=== PATIENT | female | born 1935 | race Caucasian/White ===

== ENCOUNTER 2020-12-05 07:13 | Emergency (ER) | payer MEDICARE, BC ==
[~2020-12-05] VITALS: Ht 170.2 cm; Wt 51.3 kg
[2020-12-05 07:18] VITALS: BP 168/74
[2020-12-05 07:44] LABS: COLOR,URINE RED (Yellow)
[2020-12-05 07:48] LABS: CLARITY,URINE Bloody (Clear); UA COLLECTION TYPE CLN CATCH MIDSTREAM
[2020-12-05 07:50] LABS: BACTERIA,URINE 1+ /HPF (Neg); MUCUS STRANDS NONE SEEN /LPF (Neg); RBC,URINE TNTC /HPF (0-2); SQUAMOUS EPITHELIAL CELL,UR NONE SEEN /LPF (FEW)
[2020-12-05] MEDS ORDERED: NITR100C PO (08:45)
[2020-12-05] MEDS ORDERED: nitrofuran/nitrofuran macrocrysal 100 MG capsule PO ONE (08:45)
== END 2020-12-05 08:52 | disposition home or self-care (01) ==
LOC: ER 07:13
DX: N39.0 Urinary tract infection, site not specified (principal); R10.2 Pelvic and perineal pain; Z79.899 Other long term (current) drug therapy
CPT/HCPCS: 81001; 87077; 87088; 87186; 99283

== ENCOUNTER 2021-01-09 09:34 | Emergency (ER) | payer MEDICARE, BC ==
[~2021-01-09] VITALS: Ht 170.2 cm; Wt 54.5 kg
[~2021-01-09 09:34] MED LIST: NITR100C PO
--- NOTE | 2021-01-09 10:16 | NUR ---
Back from CT at this time via guerny. No signs of distress noted.
--- NOTE | 2021-01-09 11:05 | NUR ---
Patient up to bathroom at this time independently ambualting, gait steady and balanced.
[2021-01-09 11:38] VITALS: BP 136/67
== END 2021-01-09 11:41 | disposition home or self-care (01) ==
LOC: ER 09:34
DX: M54.5 Low back pain (principal); M25.511 Pain in right shoulder; M54.2 Cervicalgia; Z79.899 Other long term (current) drug therapy; V99.XXXA Unspecified transport accident, initial encounter; Y93.89 Activity, other specified; Y92.89 Other specified places as the place of occurrence of the external cause; Y99.8 Other external cause status
CPT/HCPCS: 70450; 72125; 72128; 72131; 73030; 99285

== ENCOUNTER 2022-04-04 07:52 | Emergency (ER) | payer MEDICARE, BC ==
[~2022-04-04] VITALS: Ht 162.6 cm; Wt 72.7 kg
--- NOTE | 2022-04-04 08:20 | NUR ---
Spoke with Dr. Jewell who requested that CT- cerv[facility] spine [facility]. Verbal order placed per Dr. Jewell's verbal order.
[2022-04-04 08:58] LABS: ALBUMIN 3.7 G/DL (3.4-5.0); ANION GAP 5 (8-16); BLOOD UREA NITROGEN 14 MG/DL (7-18); BUN/CREATININE RATIO 21.9 (6.6-38.0); CALCIUM 9.1 MG/DL (8.5-10.1); CHLORIDE 106 MMOL/L (99-107); CREATININE 0.64 MG/DL (0.40-0.90); GLUCOSE 116 MG/DL (70-104); POTASSIUM 3.7 MMOL/L (3.5-5.1); SODIUM 141 MMOL/L (135-145); TOTAL CARBON DIOXIDE 29.9 MMOL/L (24-32); eGFR 88 ML/MIN
[2022-04-04 09:00] LABS: APTT 25 SECONDS (22-32)
[2022-04-04 09:08] LABS: BASOPHILS % (AUTO) 0.6 % (0-1); EOSINOPHILS % (AUTO) 0.9 % (0-6); HEMATOCRIT 41.1 % (35.0-45.0); HEMOGLOBIN 13.7 g/dl (12.0-16.0); LYMPHOCYTES # (AUTO) 0.5 X10'3 (1.1-4.8); LYMPHOCYTES % (AUTO) 11.3 % (21-51); MEAN CORPUSCULAR HEMOGLOBIN 30.2 PG (27.0-31.0); MEAN CORPUSCULAR HGB CONC 33.3 g/dL (33.0-36.5); MEAN CORPUSCULAR VOLUME 90.5 FL (78-98); MEAN PLATELET VOLUME 8.5 FL (7.4-10.4); MONOCYTES # (AUTO) 0.3 X10'3 (0-0.9); MONOCYTES % (AUTO) 8.6 % (2-12); NEUTROPHILS # (AUTO) 3.1 X10'3 (1.8-7.7); NEUTROPHILS % (AUTO) 78.6 % (42-75); PLATELET COUNT 212 X10'3 (140-440); RED BLOOD COUNT 4.54 X10'6 (4.20-5.60); RED CELL DISTRIBUTION WIDTH 14.3 % (11.5-14.5)
[2022-04-04] MEDS ORDERED: acetaminophen 325mg tablet PO ONE (09:25)
--- NOTE | 2022-04-04 12:13 | NUR ---
Pt resting , no acute distress nioted, disposition pending.
--- NOTE | 2022-04-04 14:07 | NUR ---
Pt d/c home with son in good condition,instructions given, verbalized understanding.
[2022-04-04 14:13] VITALS: BP 112/67
== END 2022-04-04 14:15 | disposition home or self-care (01) ==
LOC: ER 07:52
DX: S00.03XA Contusion of scalp, initial encounter (principal); M25.511 Pain in right shoulder; W19.XXXA Unspecified fall, initial encounter; Y93.89 Activity, other specified; Y92.89 Other specified places as the place of occurrence of the external cause; Y99.8 Other external cause status
CPT/HCPCS: 29105; 36415; 70450; 72127; 73030; 73200; 80048; 85025; 85610; 85730; 99285; A4565

== ENCOUNTER 2022-08-10 09:01 | Inpatient (IN) | payer BC, MEDICARE ==
[2022-08-04 16:14] LABS: BASOPHILS % (AUTO) 0.9 % (0-1); EOSINOPHILS # (AUTO) 0.1 X10'3 (0-0.9); EOSINOPHILS % (AUTO) 1.6 % (0-6); LYMPHOCYTES # (AUTO) 0.9 X10'3 (1.1-4.8); LYMPHOCYTES % (AUTO) 19.8 % (21-51); MEAN CORPUSCULAR HEMOGLOBIN 30.2 PG (27.0-31.0); MEAN CORPUSCULAR HGB CONC 33.1 g/dL (33.0-36.5); MEAN CORPUSCULAR VOLUME 91.4 FL (78-98); MEAN PLATELET VOLUME 8.2 FL (7.4-10.4); MONOCYTES # (AUTO) 0.4 X10'3 (0-0.9); MONOCYTES % (AUTO) 9.1 % (2-12); NEUTROPHILS # (AUTO) 3.3 X10'3 (1.8-7.7); NEUTROPHILS % (AUTO) 68.6 % (42-75); PRE OP HEMATOCRIT 44.3 % (35.0-45.0); PRE OP HEMOGLOBIN 14.6 g/dL (12.0-16.0); PRE OP PLATELET COUNT 269 X10'3 (140-440); RED BLOOD COUNT 4.84 X10'6 (4.20-5.60); RED CELL DISTRIBUTION WIDTH 14.4 % (11.5-14.5)
[2022-08-04 16:24] LABS: ALBUMIN/GLOBULIN RATIO 1.1 (1.1-1.5); ALKALINE PHOSPHATASE 97 IU/L (46-116); BLOOD UREA NITROGEN 15 MG/DL (7-18); BUN/CREATININE RATIO 24.2 (6.6-38.0); CALCIUM 9.9 MG/DL (8.5-10.1); CHLORIDE 104 MMOL/L (99-107); CREATININE 0.62 MG/DL (0.40-0.90); PRE OP ALT 26 U/L (30-65); PRE OP ANION GAP 11 (8-16); PRE OP AST 32 U/L (10-37); PRE OP BILIRUB, TOTAL 0.6 MG/DL (0.0-1.0); PRE OP GLUCOSE 94 MG/DL (70-104); PRE OP SODIUM 143 MMOL/L (135-145); TOTAL CARBON DIOXIDE 28.5 MMOL/L (24-32); TOTAL PROTEIN 7.7 G/DL (6.4-8.2); eGFR > 90 ML/MIN
[~2022-08-10] VITALS: Ht 167.6 cm; Wt 50.1 kg
[2022-08-10] VITALS (15 sets, daily range): BP systolic 122–183; BP diastolic 50–89
[~2022-08-10 09:01] MED LIST changes: +APIX2.5T PO; +CALC-723 PO; +CHOL20004 PO; +DENO60DI SUBCUT; +DOCUMENT DATE & TIME OF BETA-BLOCKER PO ONE; +HYDROcodone/acetaminophen 10/325mg tab PO PRN; +HYDROmorphone 1 mg/ml syringe IV PRN; +HYDROmorphone inj. 0.5 MG/0.5 ML DISP.SYRIN IV PRN; +MULT-1074 PO; -NITR100C PO; +ROPIVAcaine 0.5% (5mg/ml) 30ml vial ONE; +SIMV40TA PO; +SOTA80TA73 PO; +acetaminophen 325mg tablet PO ONE; +bisacodyl 10mg suppository rectal RC PRN; +ceFAZolin inj. 2,000 MG in dextrose 5%-water 100 ML IV ONE; +celeCOXIB 100mg capsule PO ONE; +cloNIDine hcl/PF 100mcg/ml inj ONE; +diphenhydrAMINE 25mg capsule PO PRN; +epiNEPHrine 1 mg/ml inj ONE; +famotidine 20mg tablet PO ONE; +gabapentin 300mg capsule PO ONE; +ketorolac trometh. 30mg/ml inj. ONE; +magnesium hydroxide 30ml (MOM) UD suspension PO PRN; +metoclopramide 5 mg/ml inj IV ONE; +naloxone 0.4 mg/ml inj IV PRN; +ondansetron/PF 4mg/2ml inj IV PRN; +oxyCODONE SR 10mg (sust. release) tab -2 tabs (20mg) PO ONE; +potassium cl 20mEq in 1/2 NS 1,000 ML IV SCH; +tranexamic acid inj. 1,000 MG in normal saline IV soln 100ML IV ONE; +vancomycin 1,000mg inj ONE; +vancomycin/NS 1 GM in NS 250 ML IV ONE
[2022-08-10] MEDS: ringers solution, lacted 1,000 ML IV SCH (10:52)
[2022-08-10] MEDS ORDERED: ondansetron 4mg rapidly disintigrating tab PO PRN (13:05)
[2022-08-10] MEDS ORDERED: fentaNYL/PF 50MCG/1 ML 2ML syringe ONE (13:30)
[2022-08-10] MEDS ORDERED: midazolam 1 mg/ML 2ml injection ONE (13:46)
[2022-08-10] MEDS ORDERED: ePHEDrine 50MG/ML INJ. ONE (13:56)
--- NOTE | 2022-08-10 15:07 | NUR ---
RECEIVED PT FROM OPERATING ROOM REPORT BY ANESTHESIOLOGIST. PT IS SLEEPY BUT EASILY AROUSABLE. VITAL SIGNS STABLE. ATTACHED TO CARDIAC, BP AND PULSE OX MONITOR. IV SITE CHECKED AND IS PATENT. NO SIGNS OF INFILTRATION. LEFT RAJANI DRESSING IS DRY AND INTACT. PT IS ABLE TO FEEL ME TOUCH HER AT THE UPPER THIGH AREA, UNABLE TO WIGGLE HER TOES AT THIS TIME, NO NORMAN NOTED
[2022-08-10] MEDS ORDERED: hydrALAZINE 20mg/ml inj. IV PRN (15:10)
[2022-08-10] MEDS ORDERED: meperidine/PF 25mg/ml syringe IV PRN ×3 (15:10)
[2022-08-10] MEDS ORDERED: labetalol 20mg/4ml (5mg/ml) syringe IV PRN (15:10)
[2022-08-10] MEDS ORDERED: ringers solution, lacted 1,000 ML IV SCH (15:10)
[2022-08-10] MEDS ORDERED: morphine 4 MG/ML inj SYRINge IV PRN (15:10)
[2022-08-10] MEDS ORDERED: acetaminophen 1,000mg/100ml IV 100 ML IV PRN (15:10)
[2022-08-10] MEDS ORDERED: ondansetron/PF 4mg/2ml inj IV PRN (15:10)
[2022-08-10] MEDS ORDERED: morphine 2 MG/ML inj. syringe IV PRN (15:10)
--- NOTE | 2022-08-10 15:24 | NUR ---
JAYDON BACK FROM LUNCH, REPORT GIVEN, PATIENT REMAINS STABLE
--- NOTE | 2022-08-10 15:40 | NUR ---
BG 89. PT AAOX4, DENIES PAIN. BILATERAL FEET/LEGS WARM TO TOUCH. PT ABLE TO MOVE LEFT FOOT. DRESSING TO LEFT HIP CLEAN DRY AND INTACT. RAJANI DRESSING FLASHING GREEN. Addendum: 08/10/22 at 1541 by Hong Calzada RN Amended: Links added.
--- NOTE | 2022-08-10 15:50 | NUR ---
REPORT GIVEN TO BENNIE SUAREZ, TO BE DELIVERED TO ROOM [facility]. Addendum: 08/10/22 at 1551 by Hong Calzada RN Amended: Links added.
--- NOTE | 2022-08-10 15:57 | NUR ---
Report called to receiving nurse BENNIE SUAREZ. Transferred via HOSPITAL BED. Belongings . LEFT AT PT BEDSIDE 356A. PT RESTING IN BED COMFORTABLY, CALL LIGHT IN REACH, VERBALIZED UNDERSTANDING OF ITS USE. BED IN LOW POSITION. DELIVERED TO ROOM WITHOUT INCIDENT. Special Issues communicated to receiving nurse. Addendum: 08/10/22 at 1622 by Hong Calzada RN Amended: Links added.
[2022-08-10] MEDS: HYDROcodone/acetaminophen 10/325mg tab PO PRN ×2 (16:31→23:31)
--- NOTE | 2022-08-10 16:54 | NUR ---
patient orientated to room. c/o pain 03/14 medicated with [place] see EMAR. Dressing to left hip CDI. palpable pulses bilat feet. commenced on post op vitals. will continue to monitor
[2022-08-10] MEDS ORDERED: tranexamic acid inj. 530 MG in normal saline 100ml IV soln 94.7 ML IV ONE (18:15)
--- NOTE | 2022-08-10 18:27 | NUR ---
Problems reprioritized. Patient report given, questions answered & plan of care reviewed with Shira SUAREZ.
--- NOTE | 2022-08-10 18:30 | NUR ---
Patient in room [facility]. I have received report from BENNIE SUAREZ and had the opportunity to ask questions and assume patient care.
[2022-08-10] MEDS ORDERED: vancomycin/NS 1 GM ADD-VANTAGE 250 ML IV SCH (20:00)
[2022-08-10] MEDS: ceFAZolin/D5W- 1GM premix 50 ML IV SCH (21:00)
[2022-08-10] MEDS: sotalol 80mg tablet PO SCH (21:12)
[2022-08-10] MEDS: ascorbic acid 500mg tablet PO SCH (21:12)
[2022-08-10] MEDS: apixaban 2.5mg tablet PO SCH (21:12)
[2022-08-10] MEDS: gabapentin 300mg capsule PO SCH (21:12)
[2022-08-10] MEDS: proCHLORperazine 10 MG/2 ml inj IV PRN (23:30)
[2022-08-11] MEDS: ceFAZolin/D5W- 1GM premix 50 ML IV SCH (00:30)
[2022-08-11 02:00] VITALS: BP 124/54
[2022-08-11] MEDS: HYDROcodone/acetaminophen 10/325mg tab PO PRN ×2 (05:45→13:57)
[2022-08-11 06:14] VITALS: BP 124/62
--- NOTE | 2022-08-11 06:25 | NUR ---
Problems reprioritized. Patient report given, questions answered & plan of care reviewed with OMER SUAREZ.
--- NOTE | 2022-08-11 06:25 | NUR ---
Patient in room [facility]. I have received report from Liliana Ford rn and had the opportunity to ask questions and assume patient care.
[2022-08-11 07:21] LABS: BASOPHILS % (AUTO) 0.1 % (0-1); EOSINOPHILS % (AUTO) 0 % (0-6); HEMATOCRIT 35.3 % (35.0-45.0); HEMOGLOBIN 11.7 g/dl (12.0-16.0); LYMPHOCYTES # (AUTO) 0.6 X10'3 (1.1-4.8); LYMPHOCYTES % (AUTO) 6.6 % (21-51); MEAN CORPUSCULAR HEMOGLOBIN 30.2 PG (27.0-31.0); MEAN CORPUSCULAR VOLUME 91.7 FL (78-98); MEAN PLATELET VOLUME 8.2 FL (7.4-10.4); MONOCYTES # (AUTO) 0.7 X10'3 (0-0.9); MONOCYTES % (AUTO) 7.7 % (2-12); NEUTROPHILS # (AUTO) 7.7 X10'3 (1.8-7.7); NEUTROPHILS % (AUTO) 85.6 % (42-75); PLATELET COUNT 148 X10'3 (140-440); RED BLOOD COUNT 3.85 X10'6 (4.20-5.60); RED CELL DISTRIBUTION WIDTH 14.4 % (11.5-14.5)
[2022-08-11] MEDS: sotalol 80mg tablet PO SCH ×2 (07:29→21:37)
[2022-08-11] MEDS: ascorbic acid 500mg tablet PO SCH ×2 (07:30→21:37)
[2022-08-11] MEDS: apixaban 2.5mg tablet PO SCH ×2 (07:30→21:37)
[2022-08-11] MEDS: gabapentin 300mg capsule PO SCH ×3 (07:30→21:36)
[2022-08-11] MEDS: multivitamins, therapeutics tablet PO SCH (07:31)
[2022-08-11 07:59] LABS: ANION GAP 11 (8-16); CHLORIDE 102 MMOL/L (99-107); POTASSIUM 3.9 MMOL/L (3.5-5.1); SODIUM 137 MMOL/L (135-145); TOTAL CARBON DIOXIDE 23.7 MMOL/L (24-32)
--- NOTE | 2022-08-11 10:49 | NUR ---
Joint surgery consult: Pt s/p L hip surgery this admit per EMR. Pt seen by RD for written/verbal high protein diet ed w/ RD contact information provided. Noted pt BMI 17.8 via 50.1kg standing scale w/ last scaled wt hx 51.3kg chair scale 12/24' per EMR. Though wt hx consistent pt has severe visible muscle/fat wasting evident to temporal, buccal, and clavicular regions during RD visit. Per pt, has noticed clothes fitting looser and wt loss past 3 months w/ prior UBW ~120 pounds. Unsure of 120 pounds wt accuracy given prior scaled wt hx but given visible wasting pt meets minimum severe malnutrition criteria; MD notified. Pt reports dislikes red meats but likes fish w/ no further food preferences dietary notified. Per pt, son buys her "protein drinks that come in 8-pack" for her to drink at times. Noted nausea this AM 0% initial meals post-op but nausea now resolved following meds per pt. RD reviewed importance of wt maintenance/gain post-op and verbally educated pt on nutrition strategies to increase kcal intake. Ensure ONS coupons provided to pt by RD. RD encouraged pt to contact dietitian's office if further nutrition questions/concerns. No discharge orders at this time per RN but joint surgery patients typically discharged 1-2 days post-op so Ensure ONS recommendation which needs to be verified by physician prior to sending logistically not feasible. Will monitor for pt PO acceptance now that nausea resolved and further nutrition intervention needs this admit. Rec: 1. continue regular diet; encourage PO; honor food preferences 2. monitor for PO trends; consider ONS if prolonged LOS 3. MVI for wound healing per MD 4. routine bowel care. 5. weekly wts Addendum: 08/11/22 at [address] Amended: Links added.
[2022-08-11 11:35] VITALS: BP 128/47
[2022-08-11] MEDS: proCHLORperazine 10 MG/2 ml inj IV PRN (13:59)
[2022-08-11] MEDS: ringers solution, lacted 1,000 ML IV SCH ×2 (15:25→17:50)
[2022-08-11 17:51] VITALS: BP 92/50
[2022-08-11 18:00] VITALS: BP 99/44
[2022-08-11] MEDS ORDERED: proCHLORperazine 10 MG/2 ml inj IV PRN (18:35)
--- NOTE | 2022-08-11 18:37 | NUR ---
Problems reprioritized. Patient report given, questions answered & plan of care reviewed with judd whaley rn.
--- NOTE | 2022-08-11 18:40 | NUR ---
Patient in room [facility]. I have received report from OMER SUAREZ and had the opportunity to ask questions and assume patient care.
[2022-08-11] MEDS: celeCOXIB 100mg capsule PO SCH (21:37)
[2022-08-11] MEDS: traMADol 50MG tablet PO PRN (21:38)
[2022-08-11] MEDS: atorvastatin 20mg tablet PO SCH (21:39)
[2022-08-11] MEDS: sennosides 8.6mg tablet PO SCH (21:39)
[2022-08-11 22:00] VITALS: BP 96/46
[2022-08-12] MEDS: ringers solution, lacted 1,000 ML IV SCH ×4 (01:59→22:12)
[2022-08-12 02:00] VITALS: BP 124/47
[2022-08-12] MEDS: traMADol 50MG tablet PO PRN ×2 (05:39→22:48)
[2022-08-12 06:00] VITALS: BP 102/40
--- NOTE | 2022-08-12 06:28 | NUR ---
Problems reprioritized. Patient report given, questions answered & plan of care reviewed with KALPANA SUAREZ.
--- NOTE | 2022-08-12 06:31 | NUR ---
Patient in room [facility]. I have received report from Shira SUAREZ and had the opportunity to ask questions and assume patient care.
[2022-08-12 06:37] VITALS: BP 102/38
[2022-08-12] MEDS: sotalol 80mg tablet PO SCH ×2 (08:00→20:50)
[2022-08-12] MEDS: multivitamins, therapeutics tablet PO SCH (08:04)
[2022-08-12] MEDS: gabapentin 300mg capsule PO SCH ×3 (08:04→20:50)
[2022-08-12] MEDS: celeCOXIB 100mg capsule PO SCH ×2 (08:04→20:50)
[2022-08-12] MEDS: ascorbic acid 500mg tablet PO SCH ×2 (08:04→20:50)
[2022-08-12] MEDS: apixaban 2.5mg tablet PO SCH ×2 (08:04→20:50)
[2022-08-12 08:21] LABS: BASOPHILS % (AUTO) 0.2 % (0-1); EOSINOPHILS % (AUTO) 0.6 % (0-6); HEMATOCRIT 32.2 % (35.0-45.0); HEMOGLOBIN 10.9 g/dl (12.0-16.0); LYMPHOCYTES # (AUTO) 0.5 X10'3 (1.1-4.8); MEAN CORPUSCULAR HEMOGLOBIN 30.8 PG (27.0-31.0); MEAN CORPUSCULAR HGB CONC 33.9 g/dL (33.0-36.5); MEAN CORPUSCULAR VOLUME 90.7 FL (78-98); MEAN PLATELET VOLUME 7.8 FL (7.4-10.4); NEUTROPHILS # (AUTO) 6.2 X10'3 (1.8-7.7); NEUTROPHILS % (AUTO) 80.2 % (42-75); PLATELET COUNT 151 X10'3 (140-440); RED BLOOD COUNT 3.55 X10'6 (4.20-5.60); RED CELL DISTRIBUTION WIDTH 14.1 % (11.5-14.5); WHITE BLOOD COUNT 7.8 X10'3 (4.5-11.0)
--- NOTE | 2022-08-12 08:30 | NUR ---
MD Jordon Morillo informed of Pt blood pressure of 98/46 no new orders.
[2022-08-12 11:15] VITALS: BP 93/41
--- NOTE | 2022-08-12 14:58 | NUR ---
TECHNICAL CUSTOMER SUPPORT SPECIALIST documentation: I have reviewed and agree with all interventions, assessments performed and documented by Susan Luque LVN.
[2022-08-12 15:25] VITALS: BP 124/56
--- NOTE | 2022-08-12 18:14 | NUR ---
Problems reprioritized. Patient report given, questions answered & plan of care reviewed with Shira York .
--- NOTE | 2022-08-12 18:30 | NUR ---
Patient in room [facility]. I have received report from KALPANA PRIDE and had the opportunity to ask questions and assume patient care.
[2022-08-12] MEDS: atorvastatin 20mg tablet PO SCH (20:50)
[2022-08-12] MEDS: sennosides 8.6mg tablet PO SCH (20:51)
[2022-08-12 22:00] VITALS: BP 127/46
[2022-08-13] MEDS: traMADol 50MG tablet PO PRN (05:43)
[2022-08-13] MEDS: ringers solution, lacted 1,000 ML IV SCH ×3 (05:45→22:24)
--- NOTE | 2022-08-13 06:30 | NUR ---
Problems reprioritized. Patient report given, questions answered & plan of care reviewed with KALPANA PRIDE.
[2022-08-13 07:20] LABS: BASOPHILS % (AUTO) 0.3 % (0-1); EOSINOPHILS # (AUTO) 0.1 X10'3 (0-0.9); EOSINOPHILS % (AUTO) 2.3 % (0-6); HEMOGLOBIN 10.2 g/dl (12.0-16.0); LYMPHOCYTES # (AUTO) 0.5 X10'3 (1.1-4.8); LYMPHOCYTES % (AUTO) 8.1 % (21-51); MEAN CORPUSCULAR VOLUME 90.8 FL (78-98); MEAN PLATELET VOLUME 8.5 FL (7.4-10.4); MONOCYTES # (AUTO) 0.8 X10'3 (0-0.9); NEUTROPHILS # (AUTO) 4.4 X10'3 (1.8-7.7); NEUTROPHILS % (AUTO) 75.3 % (42-75); PLATELET COUNT 147 X10'3 (140-440); RED BLOOD COUNT 3.41 X10'6 (4.20-5.60); RED CELL DISTRIBUTION WIDTH 14.2 % (11.5-14.5); WHITE BLOOD COUNT 5.9 X10'3 (4.5-11.0)
[2022-08-13] MEDS: gabapentin 300mg capsule PO SCH ×3 (08:12→19:44)
[2022-08-13] MEDS: multivitamins, therapeutics tablet PO SCH (08:12)
[2022-08-13] MEDS: celeCOXIB 100mg capsule PO SCH ×2 (08:12→19:43)
[2022-08-13] MEDS: apixaban 2.5mg tablet PO SCH ×2 (08:13→19:43)
[2022-08-13] MEDS: sotalol 80mg tablet PO SCH ×2 (08:13→19:42)
[2022-08-13] MEDS: ascorbic acid 500mg tablet PO SCH ×2 (08:13→19:43)
[2022-08-13 08:14] VITALS: BP 137/65
--- NOTE | 2022-08-13 17:45 | NUR ---
GLASS OR MIRROR INSPECTOR documentation: I have reviewed and agree with all interventions, assessments performed and documented by Jacqui Luque LVN .
[2022-08-13 18:00] VITALS: BP 104/38
--- NOTE | 2022-08-13 18:33 | NUR ---
Patient in room [facility]. I have received report from Jacqui and had the opportunity to ask questions and assume patient care.
[2022-08-13] MEDS: atorvastatin 20mg tablet PO SCH (19:43)
[2022-08-13] MEDS: sennosides 8.6mg tablet PO SCH (19:44)
--- NOTE | 2022-08-13 20:30 | NUR ---
Pt c/o that she had intermittent double vision to the right eye during the day. I did visual testing with her and she did not have any double vision for me and she had full vision to all quadrants. I asked that she tell us if she develops anymore double vision immediately. Addendum: 08/14/22 at 0655 by Hali Murcia RN Amended: Links added.
[2022-08-13 22:00] VITALS: BP 92/44
[2022-08-14 02:00] VITALS: BP 122/57
[2022-08-14 06:00] VITALS: BP 132/56
--- NOTE | 2022-08-14 06:01 | NUR ---
Problems reprioritized. Patient report given, questions answered & plan of care reviewed with
--- NOTE | 2022-08-14 06:27 | NUR ---
Patient in room [facility]. I have received report from Gris PRIDE and had the opportunity to ask questions and assume patient care.
--- NOTE | 2022-08-14 06:55 | NUR ---
I agree with Gris PRIDE physical assessment except where I documented my findings.
[2022-08-14] MEDS: ascorbic acid 500mg tablet PO SCH ×2 (08:34→19:29)
[2022-08-14] MEDS: apixaban 2.5mg tablet PO SCH ×2 (08:34→19:29)
[2022-08-14] MEDS: gabapentin 300mg capsule PO SCH ×3 (08:34→20:03)
[2022-08-14] MEDS: multivitamins, therapeutics tablet PO SCH (08:34)
[2022-08-14] MEDS: sotalol 80mg tablet PO SCH ×2 (08:34→19:30)
[2022-08-14] MEDS: celeCOXIB 100mg capsule PO SCH ×2 (08:34→19:29)
[2022-08-14 10:00] VITALS: BP 120/78
[2022-08-14] MEDS: ringers solution, lacted 1,000 ML IV SCH ×2 (10:34→17:55)
--- NOTE | 2022-08-14 11:25 | NUR ---
Reassessment: Pt continues on regular diet and eating well, documented with average 77% PO intake since 08/12 meeting estimated nutrient needs. LBM 08/13, first BM since admit per EMR. No nutrition intervention implemented at this time. Will continue to follow. Recommendations: 1. Continue regular diet 2. MVI for wound healing per MD 3. Routine bowel care 4. Weekly scaled wts Addendum: 08/14/22 at [address] Amended: Links added.
[2022-08-14 18:00] VITALS: BP 115/62
--- NOTE | 2022-08-14 18:15 | NUR ---
I have reviewed and agree with all interventions, assessments performed, and documentation by Jacqui Marin LVN.
[2022-08-14] MEDS: acetaminophen 325mg tablet PO PRN (19:29)
[2022-08-14] MEDS: sennosides 8.6mg tablet PO SCH (20:00)
[2022-08-14] MEDS: atorvastatin 20mg tablet PO SCH (20:04)
[2022-08-14 22:00] VITALS: BP 137/76
--- NOTE | 2022-08-14 23:11 | NUR ---
AGREE WITH SECTION CREWS ACTIVITIES CLERK PHYSICAL ASSESSMENT CHARTED
--- NOTE | 2022-08-14 23:58 | NUR ---
Problems reprioritized. Patient report given, questions answered & plan of care reviewed with natalya avila.
--- NOTE | 2022-08-15 | NUR ---
Patient in room [facility]. I have received report from KALPANA and had the opportunity to ask questions and assume patient care. PT RESTING AT THIS TIME
[2022-08-15] MEDS: acetaminophen 325mg tablet PO PRN (03:23)
[2022-08-15 06:00] VITALS: BP 125/60
--- NOTE | 2022-08-15 07:34 | NUR ---
Patient in room [facility]. I have received report from ERICK Perez and had the opportunity to ask questions and assume patient care.
[2022-08-15] MEDS: sotalol 80mg tablet PO SCH ×2 (08:03→20:24)
[2022-08-15] MEDS: celeCOXIB 100mg capsule PO SCH ×2 (08:03→20:27)
[2022-08-15] MEDS: apixaban 2.5mg tablet PO SCH ×2 (08:03→20:25)
[2022-08-15] MEDS: gabapentin 300mg capsule PO SCH ×3 (08:03→20:26)
[2022-08-15] MEDS: ascorbic acid 500mg tablet PO SCH ×2 (08:03→20:26)
[2022-08-15] MEDS: multivitamins, therapeutics tablet PO SCH (08:03)
[2022-08-15 10:00] VITALS: BP 114/57
[2022-08-15 18:00] VITALS: BP 146/70
--- NOTE | 2022-08-15 18:09 | NUR ---
Problems reprioritized. Patient report given, questions answered & plan of care reviewed with ERICK Serrato.
--- NOTE | 2022-08-15 18:33 | NUR ---
Patient in room [facility]. I have received report from ENRIQUE PRIDE and had the opportunity to ask questions and assume patient care.
[2022-08-15] MEDS: sennosides 8.6mg tablet PO SCH (20:23)
[2022-08-15] MEDS: atorvastatin 20mg tablet PO SCH (20:23)
[2022-08-15 22:00] VITALS: BP 114/55
--- NOTE | 2022-08-15 23:38 | NUR ---
Page Sent PAGER ID: [phone] MESSAGE: 356 Tania BARNES PT NEEDS SOME TYLENOL FOR A HEADACHE. CAN I PUT AN ORDER IN? SALAS [id number]
[2022-08-15] MEDS ORDERED: acetaminophen 325mg tablet PO PRN (23:45)
--- NOTE | 2022-08-16 02:51 | NUR ---
Problems reprioritized. Patient report given, questions answered & plan of care reviewed with Flakita avila.
[2022-08-16 06:00] VITALS: BP 132/63
--- NOTE | 2022-08-16 06:55 | NUR ---
Problems reprioritized. Patient report given, questions answered & plan of care reviewed with
[2022-08-16] MEDS: gabapentin 300mg capsule PO SCH ×2 (08:10→14:11)
[2022-08-16] MEDS: celeCOXIB 100mg capsule PO SCH (08:10)
[2022-08-16] MEDS: ascorbic acid 500mg tablet PO SCH (08:10)
[2022-08-16] MEDS: apixaban 2.5mg tablet PO SCH (08:10)
[2022-08-16] MEDS: multivitamins, therapeutics tablet PO SCH (08:11)
[2022-08-16] MEDS: sotalol 80mg tablet PO SCH (08:12)
[2022-08-16 10:00] VITALS: BP_SYST 106; BP_SYST 94; BP_DIAS 51; BP_DIAS 54
--- NOTE | 2022-08-16 11:31 | NUR ---
Per patients [place] call my son Felix on his phone. Called and son Felix and left a message on cell voicemail.
--- NOTE | 2022-08-16 15:08 | NUR ---
Assisted patient in getting dressed for discharge.
--- NOTE | 2022-08-16 16:30 | NUR ---
Patient discharge instructions reviewed with patient and patients son at bedside. Patient and son verbalized understanding. Patient states she has an appt with Dr Morillo on 08/25. Patients IV dc'd cannula intact. Patient was taken to son's vehicle via wheelchair.
== END 2022-08-16 16:20 | disposition home health service (06) | DRG 470 ==
LOC: PAS 09:01 → SUR 3N 09:30
PROVIDERS: ADMIT Orthopaedic Surgery; ATTEND Orthopaedic Surgery
PROC: 0SRB06Z Replacement of Left Hip Joint with Oxidized Zirconium on Polyethylene Synthetic Substitute, Open Approach (ICD-10-PCS; principal; 2022-08-10 13:22)
DX: M16.12 Unilateral primary osteoarthritis, left hip (principal); F05 Delirium due to known physiological condition; M85.80 Other specified disorders of bone density and structure, unspecified site; Z79.82 Long term (current) use of aspirin; Z79.899 Other long term (current) drug therapy
CPT/HCPCS: 36415; 72170; 80051; 80053; 82948; 85025; 86870; 86885; 86900; 86901; 86922; 87081; 97110; 97116; 97161; 97530; 97535; A5200; A7000; C1776; G0378; J0171; J0690; J0735; J0780; J1170; J1885; J2250; J2765; J2795; J3010; J3370; J3480; J3490; J7060; J7120